=== PATIENT | female | born 2000 | race Caucasian/White ===

== ENCOUNTER 2024-04-03 02:12 | Outpatient (CLI) | payer MEDICAID, SELFPAY ==
[2024-04-03 10:21] LABS: Panorama Kit Sent via Fed Ex
[2024-04-03 10:31] LABS: Abs Immature Grans 0.03 10^3/uL (0.0-0.06); Absolute Basophil Count 0.02 10^3/uL (0.0-0.2); Absolute Eosinophil Count 0.07 10^3/uL (0.0-0.7); Absolute Lymphocyte Count 1.61 10^3/uL (1.2-3.4); Absolute Monocyte Count 0.54 10^3/uL (0.1-0.8); Absolute Neutrophil Count 4.16 10^3/uL (1.2-6.7); Basophils % 0.3 %; Eosinophils % 1.1 %; HCT 33.4 % (36.0-46.0); Immature Grans % 0.5 %; MCH 28.6 pg (27.0-33.0); MCHC 32.9 % (32.0-36.0); MCV 87 fL (80-95); MPV 10.4 fL (8.0-11.0); Monocytes % 8.4 %; Neutrophils % 64.7 %; Platelet Count 203 10^3/uL (130-400); RBC 3.84 10^6/uL (3.93-5.22); RDW 12.3 % (11.7-14.6); WBC 6.43 10^3/uL (4.4-10.8)
[2024-04-03 18:31] LABS: Hepatitis B Surface Ag Negative (Negative)
[2024-04-03 18:53] LABS: HIV-1/2 Ag & Ab Screen Negative (Negative)
[2024-04-03 18:58] LABS: Hepatitis C Ab w Rflx HCV PCR Negative (Negative)
[2024-04-04 10:11] LABS: Rubella IgG Ab (UVM) Positive (See Note)
[2024-04-04 10:14] LABS: Varicella IgG Antibody Positive (See Note)
[2024-04-05 19:14] LABS: Syphilis IgG w/Reflex Nonreactive (Nonreactive)
[2024-04-13 13:18] LABS: Result Summary NEGATIVE; Specimen WB Whole Blood
== END 2024-04-03 02:13 | disposition home or self-care (01) ==
LOC: LBO 02:13
PROVIDERS: Advanced Practice Midwife; Visit Provider Advanced Practice Midwife
DX: Z34.91 Encounter for supervision of normal pregnancy, unspecified, first trimester (principal); E84.9 Cystic fibrosis, unspecified
CPT/HCPCS: 36415; 81220; 81222; 86787; 86803; 86850; 86900; 86901; 87340; 87389; 85025; 86762; 86780

== ENCOUNTER 2024-04-03 09:58 | Outpatient (REF) | payer MEDICAID, SELFPAY ==
--- NOTE | 2024-04-03 09:50 | PAPFT_PTH ---
PATIENT: Aidee Metzger LOC: [facility] U#:[id number] AGE/SX: 23/F ROOM: RE04/03/[address]: Pat Gunn : 2000 BED: DIS: 04/03/2024 SPEC #: [id number] RECD: 04/03/24 13:28 STATUS: BETTY REQ #: [id number] MATEO: 04/03/24 09:[address]: Pat Gunn DEPT: [facility] Cytology RECD BY: Mary Cook ENTERED: 04/03/24 13:28 SP TYPE: PAPFT OTHR DR: Unknown,Unknown Tissues: 1 - CX/ENDOCX FOR PAP SMEARS Procedures: PAP THIN PREP/UVM Screening Comments: [id number] (CHLAMYDIA/GC)
[2024-04-04 12:01] LABS: Chlamydia Result Negative (Negative); GC Result Negative (Negative)
== END 2024-04-03 09:59 | disposition home or self-care (01) ==
LOC: LBN 09:58
PROVIDERS: Visit Provider Advanced Practice Midwife
DX: Z34.91 Encounter for supervision of normal pregnancy, unspecified, first trimester (principal); Z3A.12 12 weeks gestation of pregnancy
CPT/HCPCS: 87491; 87591; 88142; 87086; 87480; 87510; 87660

== ENCOUNTER 2024-05-01 02:35 | Outpatient (CLI) | payer MEDICAID, SELFPAY ==
[2024-05-03 12:49] LABS: AFP 69.9 ng/mL; Cigarette smoking status non-Smoker; GA used in risk estimate Dates estimate; IVF Pregnancy No; Initial or repeat testing Initial testing; Insulin dependent diabetes No; Maternal Weight 145 lbs; Number of Fetuses 1; Physician Phone Number 802-748-7300; Prev Pregnancy w/NTD No; RECOMMENDED FOLLOW UP None.; Results Summary Normal risk
== END 2024-05-01 02:36 | disposition home or self-care (01) ==
LOC: LBO 02:35
PROVIDERS: Visit Provider Advanced Practice Midwife
DX: Z34.91 Encounter for supervision of normal pregnancy, unspecified, first trimester (principal)
CPT/HCPCS: 36415; 85027; 82105

== ENCOUNTER 2024-05-29 01:36 | Outpatient (CLI) | payer MEDICAID, SELFPAY ==
--- NOTE | 2024-05-29 06:30 | DI.US_ITS ---
Exam(s) US OB 2-3 TRIMESTER EXAM: US OB 2-3 TRIMESTER CLINICAL HISTORY: ,z34.90. TECHNIQUE: Transabdominal obstetrical ultrasound performed. COMPARISON: US POCUS EXAM from 03/06/2024 FINDINGS: Number of fetuses: 1 position: CEPHALC heart rate: 151bpm Placental location: ANTERIOR No evidence of previa. BIOMETRIC DATA: BPD: 4.79cm, 20weeks 3days HC: 18.27cm, 20weeks 5days AC: 15.54cm, 20weeks 5days FL: 3.26cm, 20weeks 1day Cisterna magna: 4.2mm Cerebellum: 1.59cm Lateral ventricle: EFW: 356.88g, 0.8lb, 32.6% Composite Age: 20weeks 4days KRISTEN: 10/12/2024 Amniotic fluid index: Amount of fluid is visually within normal limits. ANATOMICAL SURVEY: Four-chambered heart: Unremarkable. LVOT: Unremarkable. RVOT: Unremarkable. Left-sided stomach: Unremarkable. urinary bladder: Unremarkable. Bilateral kidneys: Unremarkable. Three-vessel cord: Unremarkable. Cord insertion: Unremarkable. Posterior fossa:Unremarkable. ventricles: Unremarkable. nose: Unremarkable. lips: Unremarkable. palate: Unremarkable. spine: Unremarkable. Two arms and two legs: Unremarkable. IMPRESSION: 1. Single live intrauterine gestation as above. 2. Normal anatomic survey. DATA REPOSITORY:
== END 2024-05-29 01:56 ==
LOC: DI 01:37
PROVIDERS: Visit Provider Advanced Practice Midwife
DX: Z34.92 Encounter for supervision of normal pregnancy, unspecified, second trimester (principal); Z3A.20 20 weeks gestation of pregnancy
CPT/HCPCS: 76805

== ENCOUNTER 2024-05-29 10:34 | Outpatient (REF) | payer MEDICAID, SELFPAY | END 2024-05-29 10:35 | disposition home or self-care (01) | LOC: LBN 10:34 | PROVIDERS: Visit Provider Advanced Practice Midwife | DX: Z34.92 Encounter for supervision of normal pregnancy, unspecified, second trimester (principal) | CPT/HCPCS: 87480; 87510; 87660 ==

== ENCOUNTER 2024-07-24 01:58 | Outpatient (CLI) | payer MEDICAID, SELFPAY ==
[2024-07-24 09:44] LABS: HCT 28.1 % (36.0-46.0); HGB 9.1 g/dL (11.2-15.7); MCH 28.6 pg (27.0-33.0); MCHC 32.4 % (32.0-36.0); MCV 88 fL (80-95); MPV 10.8 fL (8.0-11.0); Platelet Count 235 10^3/uL (130-400); RBC 3.18 10^6/uL (3.93-5.22); RDW 11.8 % (11.7-14.6); RDW-SD 38.1 fL; WBC 9.69 10^3/uL (4.4-10.8)
[2024-07-24 10:13] LABS: Glucose,1 Hr (Glucola) 99 mg/dL (80-140)
== END 2024-07-24 01:59 | disposition home or self-care (01) ==
LOC: LBO 01:58
PROVIDERS: Advanced Practice Midwife; Visit Provider Advanced Practice Midwife
DX: Z34.92 Encounter for supervision of normal pregnancy, unspecified, second trimester (principal)
CPT/HCPCS: 36415; 82950; 85027; 86850; 86900; 86901

== ENCOUNTER 2024-08-21 10:25 | Outpatient (REF) | payer MEDICAID, SELFPAY | END 2024-08-21 10:26 | disposition home or self-care (01) | LOC: LBN 10:25 | PROVIDERS: Visit Provider Advanced Practice Midwife | DX: O26.893 Other specified pregnancy related conditions, third trimester (principal); N89.8 Other specified noninflammatory disorders of vagina; Z3A.32 32 weeks gestation of pregnancy | CPT/HCPCS: 87480; 87510; 87660 ==

== ENCOUNTER 2024-09-18 03:13 | Outpatient (CLI) | payer MEDICAID, SELFPAY ==
[2024-09-18 10:33] LABS: HCT 31.8 % (36.0-46.0); MCH 25.6 pg (27.0-33.0); MCHC 31.4 % (32.0-36.0); MCV 81 fL (80-95); Platelet Count 209 10^3/uL (130-400); RBC 3.91 10^6/uL (3.93-5.22); RDW 13.4 % (11.7-14.6); RDW-SD 39.3 fL; WBC 7.59 10^3/uL (4.4-10.8)
== END 2024-09-18 03:14 | disposition home or self-care (01) ==
LOC: LBO 03:13
PROVIDERS: Visit Provider Advanced Practice Midwife
DX: Z34.90 Encounter for supervision of normal pregnancy, unspecified, unspecified trimester (principal); O26.899 Other specified pregnancy related conditions, unspecified trimester; Z67.91 Unspecified blood type, Rh negative
CPT/HCPCS: 36415; 85027; 86850

== ENCOUNTER 2024-09-18 11:07 | Outpatient (REF) | payer MEDICAID, SELFPAY | END 2024-09-18 11:08 | disposition home or self-care (01) | LOC: LBN 11:07 | PROVIDERS: Visit Provider Advanced Practice Midwife | DX: Z34.90 Encounter for supervision of normal pregnancy, unspecified, unspecified trimester (principal) | CPT/HCPCS: 87081 ==

== ENCOUNTER 2024-09-24 02:35 | Inpatient (IN) | payer MEDICAID, SELFPAY ==
[2024-09-24] VITALS (23 sets, daily range): BP systolic 103–136; BP diastolic 58–80; PULSE 75–127; RESP 14–18; TEMP 36.4–37.1; O2SAT 90
[2024-09-24 02:36] LABS: ROM Plus Positive
[2024-09-24 03:27] LABS: HCT 33.6 % (36.0-46.0); HGB 10.2 g/dL (11.2-15.7); MCH 25.2 pg (27.0-33.0); MCHC 30.4 % (32.0-36.0); MCV 83 fL (80-95); MPV 12.3 fL (8.0-11.0); Platelet Count 220 10^3/uL (130-400); RBC 4.05 10^6/uL (3.93-5.22); RDW 13.5 % (11.7-14.6); RDW-SD 40.6 fL; WBC 9.55 10^3/uL (4.4-10.8)
--- NOTE | 2024-09-24 09:00 | W.PM.OBHPL1 ---
Date of service: 09/24/24 Time of Service: 09:00 Assessment and Plan Assessment and plan (1) Spontaneous onset of labor: Status: Acute Assessment and plan: Admit to Center and routine admission labs. Comfort measures. Anticipate . (2) Rh negative status during : Status: Acute Assessment and plan: Discussed indication for rhogam in to prevent sensitization. Aidee declines at this time having stated during her most recent visit that she has heard too many bad things about it. I explained how not receiving rhogam could cause sensitization and effect future pregnancies. She and her partner, Juni, expressed understanding of this. I also explained the possibility of sensitization occurring during labor and she verbalized that she understands. She wishes to receive rhogam after the baby is born. OB-HPI Labor/Delivery History of Present Illness Reason for Visit: Rule out labor Chief Complaint: Uterine Contractions; Suspected Rupture of Membranes , Associated Signs and Symptoms of Suspected ROM: mild low back ache. KRISTEN Calculator Estimated Delivery Date Method Current WG Current Estimate 10/11/24 LMP (Certain) 37w 4d Other Estimates 10/14/24 Ultrasound #1 37w 1d Comments: Aidee called and reported SROM at 0045. She was instructed to present to the center for evaluation. ROM plus pos and leaking clear fluid. Mild contractions. Aidee attempted to sleep but her contractions became stronger and she used nitrous oxide and the tub for comfort with good effect, History of Present Expected Delivery Route/Plan - CNM FOB - Juni Cassandra (heart murmur at which resolved) BG GBS negative Specific Issues/Plan 1. cfDNA low risk x5 female, CF carrier screen negative, AFP- nml 2. 5-Ps neg 3. Rh negative, Discuss with [facility], RhoGam @ 28 wks . She declines Rhogam and requests RH testing through [facility]. Baby is RH pos per [facility] 3a. Declines Rhogam until 36wks; Declines again at 36 weeks (counseled), may consider @ 37 week visit __ 4. Close family hx Preeclampsia (pt's mother), start Baby ASA 28w5d (never started) 5. Anemia, hgb 9.1 at 28 wks, taking iron tabs and iron rich foods. 10.0 on 09/18. Will continue QOD iron & iron rich foods. Assessment: History Reviewed & Current PFSH All Active Problems (Updated 09/24/24 @ 09:01 by Pat Gunn CNM) Spontaneous onset of labor (Acute) Pelvic pain affecting (Acute) Vaginal discharge during (Acute) Anemia affecting (Acute) Rh negative status during (Acute) (Acute) Medical History (Updated 09/24/24 @ 09:01 by Pat Gunn CNM) Anxiety Depression Asthma Surgical History (Updated 04/03/24 @ 08:56 by Pat Gunn CNM) H/O oral surgery Family History (Updated 04/03/24 @ 08:56 by Pat Gunn CNM) Father Depression Mother Bipolar 1 disorder Sister Bipolar 1 disorder Sister Depression Social History Smoking/Tobacco Use Status: Former Tobacco Use Smoking risk assessment performed?: Yes Alcohol Intake: never Drug use: Never Substance use type: does not use Housing: house Do you feel safe at home: No Do you feel safe in your relationship?: Yes History History 1 Para 0 Hx # Term Pregnancies 0 Multiple births 0 Hx # Pregnancies 0 Ectopic pregnancies 0 AB induced 0 Hx Number of Living Children 0 AB spontaneous 0 Meds Allergies and Home Medications Allergies Allergy/AdvReac Type Severity Reaction Status Date / Time No Known Allergies Allergy Verified 09/18/24 10:44 Home Medications ?Medication ?Instructions ?Recorded ?Confirmed ?Type albuterol 90 mcg/actuation aerosol mcg inhalation PRN 03/06/24 09/18/24 History inhaler dextroamphetamine sulfate 20 mg 20 mg PO TID 03/06/24 09/18/24 History tablet GoJoy DHA with Choline PO 05/01/24 09/18/24 History multivitamin with minerals 10 ml PO DAILY 06/26/24 09/18/24 History ferrous sulfate 325 mg (65 mg 325 mg PO DAILY 08/07/24 09/18/24 History iron) tablet (Feosol) Exam Physical Exam Vital signs: Temp Pulse Resp BP Pulse Ox 98.8 F 115 H 14 115/72 90 L 09/24/24 07:25 09/24/24 07:25 09/24/24 07:25 09/24/24 07:25 09/24/24 03:20 Vital Signs Reviewed: Yes Constitutional Constitutional: no acute distress Detailed Labor and Delivery Exam Dilation: 5 Effacement (%): 90 station: -1 Cervix position: mid Consistency: soft Brown Score: Cervical Points Exam 0 1 2 3 Dilation Closed 1-2cm 3-4 cm 5-6cm Effacement 0-30% 40-50% 60-70% 80% Consistency Firm Medium Soft Station -3 -2 -1,0 +1,+2 Position Posterior Mid Anterior Rupture Method: Spontaneous Amniotic Fluid: Clear Monitor Mode: External Contraction Frequency(min): every 3-5 Contraction Duration(sec): 50 - 60 Contraction Intensity: Moderate Fetus A Heart Rate Baseline: 140 Monitor Accelerations: 15 X 15 Monitor Decelerations: None Variability: Moderate (6-25 BPM) Presentation: Cephalic Categories: Category I Date of Membrane Rupture: 09/24/24 Time of Membrane Rupture: 00:30 HEENT Exam HEENT Exam: Normal Respiratory Exam Respiratory Exam: Normal Cardiovascular Exam Cardiovascular Exam: Normal Abdominal Exam Abdominal Exam: Normal Exam Exam: Normal Extremities Exam Extremities Exam: Normal Skin Exam Skin Exam: Normal Psychiatric Exam Psychiatric Exam: Normal Results Abnormal Lab Findings: Abnormal Labs 09/24/24 03:15 Hgb 10.2 L Hct 33.6 L MCH 25.2 L MCHC 30.4 L MPV 12.3 H Risk Assessment Risk for Shoulder Dystocia Historical/Initial OB: NEGATIVE FOR: Pelvic Abnormality, Pre- BMI>30, Previous Shoulder Dystocia or Previous Macrosomia 36 Weeks: NEGATIVE FOR: Current Gestational DM, EFW>4500gms or Maternal Weight Gain>40lbs 40 Weeks: POSTIVE FOR: Maternal Weight Gain >40lb; NEGATIVE FOR: EFW> 4500 gms or Post Dates Increased Risk?: No Delivery Plan @ 36wks: Waterbirth Risk for Pre-Eclampsia Date Initiated/Initials: KM 04/03/25 Yes, if one or more: NEGATIVE FOR: Hx Pre-E/Gest HTN, Chronic HTN, Multiple Gestation, Pre-gestational DM, Renal Disease, Systemic Lupus or APA Syndrome Yes, if 2 or more: POSITIVE FOR: Nulliparity and Mother/Sister w/ Pre-E (mother); NEGATIVE FOR: Age>= 35 yrs, >10yr btwn pregnancies, BMI>30, ethinicty or Previous IUGR Risk for Post- Hemorrhage Initial: NEGATIVE FOR: Multiple Gestation, Previous PPH, Known Clotting Deficiency, Grand Multiparity or Anticoagulation 36 Weeks: NEGATIVE FOR: Anemia, hgb<10, Low platelets(thrombocytopenia), Gestational HTN or Pre-E, Polyhydraminios or EFW>4500gms 40 Weeks: NEGATIVE FOR: Anemia, hgb<10, Low platelets (thrombocytopenia), Gestation HTN or Pre-E, Polyhydraminios or EFW>4500gms Risks Reviewed Risks Reviewed Upon Admission: Yes
[2024-09-24] MEDS: Oxytocin 10 UNITS/ML VIAL IM (12:48)
[2024-09-24] MEDS: miSOPROStol 200 MCG TAB 400 MCG SL (12:52)
[2024-09-24] MEDS: Lactated Ringers 1,000 ML 999 ML IV (14:30)
--- NOTE | 2024-09-24 14:45 | OBVDS_ITS ---
Date of service: 09/24/24 Time of Service: 14:45 OB Labor/ Delivery Information Baby A Delivery Delivery Method: Spontaneaous Presentation: Cephalic Vertex Position: Left Occipital Posterior Cord Description-Baby A: 3 Vessels Cord Description Comment: tight nuchal cord x1 Amniotic Fluid: Clear Estimated Blood Loss: 740 Delivery Outcome: Liveborn Transferred: Remains with Mother Note: FHTs 130 during first stage of labor. FHTs 130 in second stage. She progressed to full dilation and had an urge to push. She requested to move to the tub and began pushing in hands and knees position. Second stage huddle was done. Spontaneous delivery of female delivered in RUBENS position. Tight nuchal cord was noted and baby was delivered in the water with somersault maneuver and the cord was unwrapped. Baby was placed on mother's arms and had a spontaneous cry. Cord was clamped and cut by the baby's father as it was not pulsing after delivery. She had a bright gush f blood in the tub and was moved to the bed, The placenta delivered spontaneously and appears to by intact with a three vessel cord. Pitocin was declined by Aidee. The bleeding was heavy and bright with clots after the placenta delivered and pitocin 10 units was administered with her consent. The perineum was inspected and was intact. She continued to have bright bleeding and a straight cath was placed for 200 cc clear urine and misoprostol 400 mcg was administered Po. The uterus remained firm after massage. The baby did breastfeed well. After delivery, Mother and baby and father of the baby were stable and bonding well in the delivery room and there were no complications. QBL was measured at 640 cc plus approximately 100 cc in the tub for a total of 740 cc. Providers Nurse Party Plan Sales Unit Sales Leader: Pat Gunn Nurse: Scot Rivera Nurse: Zelalem English Labor/Delivery Information Number of Babies in Womb: 1 Steroids Given: None Reason Steroids Not Administered: N/A Group Beta Strep: Negative Antibiotics Administered: No Born En Route: No Maternal Complications: None Shoulder Dystocia: No Stages of Labor Onset of Labor Date: 09/24/24 Onset of Labor Time: 00:30 Complete Dilatation Date: 09/24/24 Complete Dilatation Time: 12:08 Labor - Stage 1 Duration: 11 hours and 38 minutes ROM Baby A: 09/24/24 ROM Baby A: 00:30 ROM Total Time- Baby A: [id number] Delivery Date-Baby A: 09/24/24 Infant Delivery Time-Baby A: 12:30 Labor Stage 2 Duration: 22 minutes Placenta Delivery Date-Baby A: 09/24/24 Placenta Delivery Time-Baby A: 12:47 Labor-Stage 3 Duration: 17 minutes Total Length of Labor-Baby A: 12 hours and 0 minutes Placenta Cultured: No Placenta Status: Delivered Baby A Gender: Female Gestational Status: Early Term (37-38.6 wks) Gestational Age in Weeks/Days: 37 Weeks and 4 Days Score-1 Minute Interval(Baby A) Heart Rate-1 minute: 100 BPM or Greater Respiratory Effort- 1 minute: Spontaneous/Strong Cry Muscle Tone-1 minute: Active Movement Reflex Response-1 minute: Prompt Response Color-1 minute: Bluish Hands or Feet Total Score-1 minute: 9 Score-5 Minute Interval(Baby A) Heart Rate- 5 minute: 100 BPM or Greater Respiratory Effort-5 minute: Spontaneous/Strong Cry Muscle Tone-5 minute: Active Movement Reflex Response-5 minute: Prompt Response Color-5 minute: Bluish Hands or Feet Total Score- 5 minute: 9
--- NOTE | 2024-09-24 14:53 | W.PM.OBPNV1 ---
Date of service: 09/24/24 Time of Service: 15:02 Assessment and Plan Assessment and plan (1) Hemorrhage after vaginal delivery: Status: Acute Assessment and plan: CBC ordered this evening. IV start has been requested of ED nurse. Plan IV access and fluid bolus with pitocin 30 MU per protocol and will continue to assess. Subjective Subjective Patient comments: Pain well controlled [place] baby status: Doing well Narrative: Aidee breast fed well. t approximately 2 hours post . she reported feeling dizzy and seeing stars. Scot RN noted a gush of bright blood with fundal massage. The uterus was boggy and was massaged. I discussed an IV start and pitocin administration and Aidee agrees. Nursing has attempted IV access without success. Exam Physical Exam Vital signs: Temp Pulse Resp BP Pulse Ox 98.4 F 116 H 14 113/71 90 L 09/24/24 11:21 09/24/24 14:03 09/24/24 11:21 09/24/24 14:03 09/24/24 03:20 Vital Signs Reviewed: Yes Constitutional Constitutional: mild distress Fundal Exam Fundus: Below Umbilicus and Firm Comment: firms with massage. approximately 100 cc on bright blood on chux. baby placed at breast Extremities Exam Extremity Exam: Normal Results Hemoglobin/Hematocrit: Hgb 10.2 g/dL (11.2-15.7) L 09/24/24 03:15 Hct 33.6 % (36.0-46.0) L 09/24/24 03:15 Abnormal Lab Findings: Abnormal Labs 09/24/24 03:15 Hgb 10.2 L Hct 33.6 L MCH 25.2 L MCHC 30.4 L MPV 12.3 H
[2024-09-24] MEDS: Oxytocin/Normal Saline 30 UNIT/500 ML BAG 95 UNITS IV (15:30)
[2024-09-24] MEDS: Methylergonovine 0.2 MG TAB (15:55)
--- NOTE | 2024-09-24 16:16 | W.PM.OBPNV1 ---
Date of service: 09/24/24 Time of Service: 16:16 Assessment and Plan Assessment and plan (1) Anemia due to blood loss: Status: Acute Assessment and plan: repeat CBC at 1999. Aidee had expressed a strong desire to go home after 4 hours. I stressed that given the near 1000 cc blood loss, I can not advise early discharge at this time. Juni, her verbalized understanding. (2) Hemorrhage after vaginal delivery: Status: Acute Assessment and plan: Pitocin was decreased to 95 cc/hr. LR bolus x 1000 cc. Will continue to assess and provide [address] Vaughan consulted re: patient's status and she recommended misoprostol 600 mcg PO every 6 hours x 24 hours and that was ordered. Subjective Subjective Interval history: Aidee compained of lightheadedness and IV bolus Lactated ringers was provided and pitocin was increased to 500 cc/hr. There was bright bleeding on her chux. Straight cath for 300 cc clear urine. Uterine massage was performed with expression of clots from the cervical os. Total QBL from 3 chux including cltos was 140 cc for a total EBL of 980 cc. IM methergine 02. mg was given as well as PO methergine 0.2 mg. Uterus was firm and down 4 FB after massage and expression of clots. Aidee reportsed that she was feeling better after the IV bolus. Exam Physical Exam Vital signs: Temp Pulse Resp BP Pulse Ox 98.4 F 106 H 14 114/65 90 L 09/24/24 11:21 09/24/24 16:02 09/24/24 11:21 09/24/24 16:02 09/24/24 03:20 Results Hemoglobin/Hematocrit: Hgb 10.2 g/dL (11.2-15.7) L 09/24/24 03:15 Hct 33.6 % (36.0-46.0) L 09/24/24 03:15 Abnormal Lab Findings: Abnormal Labs 09/24/24 03:15 Hgb 10.2 L Hct 33.6 L MCH 25.2 L MCHC 30.4 L MPV 12.3 H
[2024-09-24] MEDS: Ibuprofen 600 MG TAB PO ×2 (16:38→23:33)
[2024-09-24] MEDS: Acetaminophen 325 MG TAB 650 MG PO ×2 (16:38→21:39)
[2024-09-24 20:38] LABS: HCT 23.1 % (36.0-46.0); HGB 7.3 g/dL (11.2-15.7); MCH 25.3 pg (27.0-33.0); MCHC 31.6 % (32.0-36.0); MCV 80 fL (80-95); MPV 12.3 fL (8.0-11.0); Platelet Count 201 10^3/uL (130-400); RBC 2.88 10^6/uL (3.93-5.22); RDW 13.7 % (11.7-14.6); RDW-SD 39.9 fL
[2024-09-24] MEDS: miSOPROStol 100 MCG TAB 600 MCG PO (20:49)
[2024-09-25] VITALS (10 sets, daily range): BP systolic 97–124; BP diastolic 57–78; PULSE 75–119; RESP 15–18; TEMP 36.6–37.4; O2SAT 97–98
[2024-09-25 06:41] LABS: HCT 22.5 % (36.0-46.0); MCH 24.7 pg (27.0-33.0); MCHC 30.7 % (32.0-36.0); MCV 81 fL (80-95); Platelet Count 236 10^3/uL (130-400); RBC 2.79 10^6/uL (3.93-5.22); RDW 13.9 % (11.7-14.6); RDW-SD 40.4 fL; WBC 14.16 10^3/uL (4.4-10.8)
[2024-09-25 06:56] LABS: HGB 6.9 g/dL (11.2-15.7)
[2024-09-25] MEDS: Dibucaine 1% 28 GM TUBE TP (07:58)
[2024-09-25] MEDS: Docusate Sodium 100 MG CAP PO (07:59)
[2024-09-25] MEDS: Acetaminophen 325 MG TAB 650 MG PO ×2 (07:59→12:43)
[2024-09-25] MEDS: Hamamelis Leaf/Glycerin 100 EACH BOX PR (07:59)
[2024-09-25] MEDS: Ibuprofen 600 MG TAB PO (08:00)
[2024-09-25] MEDS: Normal Saline Flush 10 ML SYR IVP (08:01)
--- NOTE | 2024-09-25 09:01 | W.PM.OBPNV1 ---
Date of service: 09/25/24 Time of Service: 09:02 Assessment and Plan Assessment and plan (1) Maternal blood transfusion: Status: Acute Assessment and plan: A: PPD#1, s/p , s/p PPH Hgb 6.9 hct 22.5 this morning, pulse running >110, pt appears pale Rh neg, baby is Rh+, pt has declined RhoGam during P:Pt consents to 2 units PRBC's, consult with Dr. Vaughan completed Pt consents to RhoGam today Will check CMP and bile acids d/t pt report sx of cholestasis a couple days prior to labor Plan discharge this after noon when transfusion completed F/up at 1, 2 and 6 weeks (2) Anemia due to blood loss: Status: Acute Assessment and plan: 2 units PRBC's today (3) Rh negative status during : Status: Acute Assessment and plan: RhoGam to be given today Subjective Subjective Interval history: Pt has been ambulating without dizziness, feels tired but in no pain. Appears very pale. Patient comments: No complaints, Pain well controlled, Tolerating diet and Flatus present Patient's Mood: tired, wants to go home today [place] baby status: Doing well, Nursing well, Rooming in and Strong Bonding Observed [place] feeding status: Exclusively breast feeding Exam Physical Exam Vital signs: Temp Pulse Resp BP Pulse Ox 98.3 F 116 H 17 103/61 97 09/25/24 07:45 09/25/24 07:45 09/25/24 07:45 09/25/24 07:45 09/25/24 07:45 Vital Signs Reviewed: Yes Constitutional Constitutional: no acute distress, average body habitus and cooperative HEENT Exam HEENT Exam: Normal Neck Exam Neck Exam: Normal Breast Exam Bilateral: Breast Exam: Normal and Soft Nipple Exam: Normal and Uninjured Respiratory Exam Respiratory Exam: Normal Cardiovascular Exam Cardiovascular Exam: Normal Abdominal Exam Abdomen: Other (soft and nontender) Fundal Exam Fundus: Below Umbilicus and Firm Rectal Exam Rectal Exam: Normal Exam Perineum: Repair Intact Extremities Exam Extremity Exam: Normal, Full ROM and Warm to Touch Back/Spine/Pelvis Exam Back Exam: Normal Skin Exam Skin Exam: Normal Neurological Exam Neurological Exam: Normal Psychiatric Exam Psychiatric Exam: Normal Results Hemoglobin/Hematocrit: Hgb 6.9 g/dL (11.2-15.7) L* 04/21/25 06:30 Hct 22.5 % (36.0-46.0) L 09/25/24 06:30 Abnormal Lab Findings: Abnormal Labs 09/24/24 09/24/24 09/25/24 03:15 20:30 06:30 WBC 18.30 H 14.16 H RBC 2.88 L 2.79 L Hgb 10.2 L 7.3 L D 6.9 L* Hct 33.6 L 23.1 L 22.5 L MCH 25.2 L 25.3 L 24.7 L MCHC 30.4 L 31.6 L 30.7 L MPV 12.3 H 12.3 H 12.0 H
[2024-09-25 09:10] LABS: ALT 17 U/L (14-59); AST 32 U/L (15-37); Albumin 2.4 g/dL (3.4-5.0); Alkaline Phosphatase 115 U/L (46-116); Anion Gap 7.1 mmol/L (3-11); BUN 6 mg/dL (7-18); CO2 23.9 mmol/L (21.0-32.0); CREATININE 0.7 mg/dL (0.55-1.02); Calcium 8.4 mg/dL (8.5-10.1); Chloride 105 mmol/L (98-107); Estimated GFR 123.01 (mL/min/1.73m2); Glucose 86 mg/dL (74-106); Potassium 4.3 mmol/L (3.5-5.1); Sodium 136 mmol/L (136-145)
[2024-09-25 09:11] LABS: Bilirubin, Total < 0.1 mg/dL (0.2-1.0)
[2024-09-25] MEDS: RHO(D) Immune Globulin 1,500 UNIT Syringe 1500 UNIT IM (10:16)
--- NOTE | 2024-09-25 15:06 | W.PM.OBDISCH ---
Date of service: 09/25/24 Time of Service: 15:06 DS: Diagnosis Discharge Diagnosis (1) Maternal blood transfusion: Status: Acute (2) Anemia due to blood loss: Status: Acute (3) Rh negative status during : Status: Acute Discharge Plan Disposition Patient Disposition: Home Condition: Good Discharge Details Reason For Visit: Late Labor Admit Date/Time: 09/24/24 02:59 Admit Provider: Pat Gunn Attending Provider: Pat Gunn Primary Care Provider: Unknown,Unknown Hospital Course Hospital Course: on day of admission, delayed hemorrhage. 2 units PRBC's given on PPD#1 for hgb <7, pt desires discharge to home at 24 hours , will f/up in 1 week and prn Home Meds and New Rx's Prescriptions: No Action multivitamin with minerals Liquid 10 ml PO DAILY dextroamphetamine sulfate 20 mg tablet 20 mg PO TID Rx Instructions: administer doses at least 4-6 hours apart albuterol 90 mcg/actuation aerosol inhalation PRN GoJoy DHA with Choline 150 mg capsule PO ferrous sulfate [Feosol] 325 mg (65 mg iron) tablet 325 mg PO DAILY Discharge Instructions Stand Alone Forms: BC Instructions, BC Post Vaginal Deliver Activity:: Activity as Tolerated Equipment/Supplies:: No Equipment Needed Diet:: Normal Diet Discharge Orders Discharge Orders: Discharge Order (Routine); Ordered 09/25/24 Ordered By: Layla Garcia OB:DS Summary Summary Vaginal Delivery Method: Spontaneaous Episiotomy Description: None Laceration Description: None Laceration Extension: N/A Contraception Discussed Contraception Discussed: Yes Contraceptive Plan: Undecided, [place] Infant Gender-Baby A: Female weight: 6 lb 2.414 oz Status at Discharge Functional status at discharge: independent ambulation Overall status at discharge: patient is progressing back to baseline Mental Status: mental status grossly normal Speech and Movement: speech and movement normal and speech clear Mood: congruent mood Affect: normal affect Quality:SDOH Health Related Social Needs: No Data to Display Exam Physical Exam Vital signs: Temp Pulse Resp BP Pulse Ox 97.9 F 107 H 15 113/78 97 09/25/24 13:00 09/25/24 13:00 09/25/24 13:00 09/25/24 13:00 09/25/24 13:00 Constitutional Constitutional: no acute distress, average body habitus and cooperative HEENT Exam HEENT Exam: Normal Neck Exam Neck Exam: Normal Breast Exam Bilateral: Breast Exam: Normal and Soft Respiratory Exam Respiratory Exam: Normal Cardiovascular Exam Cardiovascular Exam: Normal Abdominal Exam Abdomen: Other (soft and nontender) Fundal Exam Fundus: Below Umbilicus and Firm Rectal Exam Rectal Exam: Normal Exam Perineum: Repair Intact Extremities Exam Extremity Exam: Normal, Full ROM and Warm to Touch Back/Spine/Pelvis Exam Back Exam: Normal Skin Exam Skin Exam: Normal Neurological Exam Neurological Exam: Normal Psychiatric Exam Psychiatric Exam: Normal PFSH All Active Problems (Updated 09/25/24 @ 09:26 by Layla Garcia) Maternal blood transfusion (Acute) after hemorrhage Anemia due to blood loss (Acute) Hemorrhage after vaginal delivery (Acute) Rh negative status during (Acute) Declined rhogam in Medical History (Updated 09/25/24 @ 09:26 by Layla Garcia) Pelvic pain affecting Vaginal discharge during Anxiety Depression Asthma Surgical History (Updated 04/03/24 @ 08:56 by Pat Gunn CNM) H/O oral surgery Family History (Updated 04/03/24 @ 08:56 by Pat Gunn CNM) Father Depression Mother Bipolar 1 disorder Sister Bipolar 1 disorder Sister Depression Social History Smoking/Tobacco Use Status: Former Tobacco Use Smoking risk assessment performed?: Yes Alcohol Intake: never Drug use: Never Substance use type: does not use Housing: house Do you feel safe at home: No Do you feel safe in your relationship?: Yes History History 1 Para 0 Hx # Term Pregnancies 0 Multiple births 0 Hx # Pregnancies 0 Ectopic pregnancies 0 AB induced 0 Hx Number of Living Children 0 AB spontaneous 0 DS: Data Vitals/I&O Vitals and I&O: Vital Signs Temperature 97.9 F 09/25/24 13:00 Temperature Source Oral 09/25/24 07:45 Pulse 107 H 09/25/24 13:00 Pulse Rhythm Regular 09/25/24 07:45 Respiratory Rate 15 09/25/24 13:00 Respiratory Depth Normal 09/25/24 07:45 Blood Pressure 113/78 09/25/24 13:00 Blood Pressure Mean 75 09/25/24 07:45 Pulse Oximetry 97 09/25/24 13:00 Oxygen Delivery Method Room Air 09/25/24 13:00 Oxygen Flow Rate 0 09/25/24 13:00 Pain Level 4 09/24/24 23:33 Intake & Output 09/24/24 09/25/24 09/25/24 23:59 11:59 23:59 Intake Total 1500 / 3000 1500 / 3000 Output Total 2275 / 2675 400 / 400 Balance -2275 / -2315 1100 / 2600 1500 / 2600 Intake: IV 1500 / 1500 Blood Product 1500 / 1500 Rbc Leuko Reduced Unit 1000 / 1000 [id number] Rbc Leuko Reduced Irradiated 500 / 500 Unit [id number] Output: Urine 2000 / 2400 400 / 400 Blood 275 / 275 Other: Urine Color Pale Pale Data Completed and Pending Labs on day of discharge: Labs from last 24 hours 09/25/24 09/24/24 09/24/24 06:30 20:30 15:13 WBC 14.16 H 18.30 H RBC 2.79 L 2.88 L Hgb 6.9 L* 7.3 L D Hct 22.5 L 23.1 L MCV 81 80 MCH 24.7 L 25.3 L MCHC 30.7 L 31.6 L RDW 13.9 13.7 Plt Count 236 201 MPV 12.0 H 12.3 H Sodium 136 Potassium 4.3 Chloride 105 Carbon Dioxide 23.9 Anion Gap 7.1 BUN 6 L Creatinine 0.7 Est GFR (CKD-EPI 2020) 123.01 Glucose 86 Calcium 8.4 L Total Bilirubin < 0.1 L AST 32 ALT 17 Alkaline Phosphatase 115 Total Protein 6.0 L Albumin 2.4 L Total Bile Acids Pending ABO/Rh Antibody Screen Screen Pending Rhogam Unit Number Crossmatch Unit Expiration Date Product Lot # 09/24/24 03:15 WBC RBC Hgb Hct MCV MCH MCHC RDW Plt Count MPV Sodium Potassium Chloride Carbon Dioxide Anion Gap BUN Creatinine Est GFR (CKD-EPI 2020) Glucose Calcium Total Bilirubin AST ALT Alkaline Phosphatase Total Protein Albumin Total Bile Acids ABO/Rh O Negative Antibody Screen NEGATIVE Screen Rhogam Unit Number [id number] Crossmatch See Detail Unit Expiration Date 05/09/25 Product Lot # [id number]
[2024-09-27 17:52] LABS: Bile Acids, Total 4 mcmol/L (<=10)
== END 2024-09-25 15:05 | disposition home or self-care (01) | DRG 806 ==
LOC: OBS 02:38
PROVIDERS: Advanced Practice Midwife; Admitting Provider Advanced Practice Midwife; Visit Provider Advanced Practice Midwife
DX: O26.893 Other specified pregnancy related conditions, third trimester (principal); D62 Acute posthemorrhagic anemia; Z37.0 Single live birth; Z67.91 Unspecified blood type, Rh negative; Z3A.37 37 weeks gestation of pregnancy; O72.2 Delayed and secondary postpartum hemorrhage; O99.02 Anemia complicating childbirth
CPT/HCPCS: 36415; 80053; 84112; 85027; 85461; 86850; 86900; 86901; 86920; 90384; 82239; J2590; J2790; P9016

== ENCOUNTER 2024-10-02 00:31 | Outpatient (CLI) | payer MEDICAID, SELFPAY ==
[2024-10-02 11:40] LABS: HCT 33.8 % (36.0-46.0); HGB 10.3 g/dL (11.2-15.7); MCH 26.3 pg (27.0-33.0); MCHC 30.5 % (32.0-36.0); MCV 86 fL (80-95); MPV 10.1 fL (8.0-11.0); Platelet Count 396 10^3/uL (130-400); RBC 3.91 10^6/uL (3.93-5.22); RDW 16.2 % (11.7-14.6); RDW-SD 49.6 fL; WBC 8.69 10^3/uL (4.4-10.8)
== END 2024-10-02 00:32 | disposition home or self-care (01) ==
LOC: LBO 00:31
PROVIDERS: Visit Provider Advanced Practice Midwife
DX: D50.0 Iron deficiency anemia secondary to blood loss (chronic) (principal)
CPT/HCPCS: 36415; 85027